=== PATIENT | female | born 1985 | race African-American/Black ===

== ENCOUNTER 2018-02-07 13:05 | Emergency (ER) | payer OTHER ==
[2018-02-07] MEDS ORDERED: HYDROCODONE/ACETAMINOPHEN 5-325 MG TABLET PO ONE (14:42)
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
[2018-02-07 16:20] VITALS: BP 153/99
== END 2018-02-07 16:20 | disposition home or self-care (01) ==
LOC: ER 13:05
DX: S16.1XXA Strain of muscle, fascia and tendon at neck level, initial encounter (principal); S63.501A Unspecified sprain of right wrist, initial encounter; S73.101A Unspecified sprain of right hip, initial encounter; M54.2 Cervicalgia; M25.511 Pain in right shoulder; M25.551 Pain in right hip; M25.531 Pain in right wrist; V49.50XA Passenger injured in collision with unspecified motor vehicles in traffic accident, initial encounter; F17.200 Nicotine dependence, unspecified, uncomplicated
CPT/HCPCS: 99284; 73502; 73030; 73110; 70450; 72125; L3908